=== PATIENT | male | born 1955 | race Caucasian/White ===

== ENCOUNTER 2016-06-18 14:32 | Emergency (ER) | payer OTHER ==
[~2016-06-18] VITALS: Ht 180.3 cm; Wt 106.5 kg
[~2016-06-18 14:32] MED LIST: OMEP20CA59 PO
[2016-06-18 14:42] VITALS: Ht 180.3 cm; Wt 106.5 kg
[2016-06-18] MEDS ORDERED: ACETAMINOPHEN 500 MG TAB PO STA (14:59)
[2016-06-18] MEDS ORDERED: ALBUT/IPRATROP 3MG/0.5MG NEB 3 ML VIAL INH STA (14:59)
[2016-06-18] MEDS ORDERED: BLOOD PRESSURE PO (15:33)
--- NOTE | 2016-06-18 15:50 | DIAGNOSTIC IMAGING REPORT ---
CHEST 2 VIEWS ROUTINE CLINICAL HISTORY: cough, fever FLULIKE SYMPTOMS COMPARISON STUDY: No previous studies for comparison. FINDINGS: The cardiac and mediastinal contours are normal. There is no evidence of focal pulmonary consolidation. There is no evidence of failure. No pleural effusions are visualized.[ There are linear bibasilar atelectatic changes IMPRESSION: Bibasilar atelectatic change. No evidence of lobar consolidation. No evidence of failure. Electronically signed by: Percy Dong M.D. 06/18/2016 3:49 PM Dictated Date/Time: 06/18/2016 3:48 PM
[2016-06-18 16:23] VITALS: TEMP 37.3
[2016-06-18] MEDS ORDERED: ALBUTEROL HFA 8 GM INHALER INH STA (16:47)
[2016-06-18] MEDS ORDERED: HYDR5SYP11 PO (16:50)
--- NOTE | 2016-06-18 16:59 | EMERGENCY ROOM VISIT NOTE ---
History First contact with patient: 14:49 Chief Complaint: FLU LIKE SX Stated Complaint: FLU LIKE SX History of Present Illness The patient is a 61 year old male who presents to the Emergency Room with complaints of chest tightness, burning, cough, myalgias, shortness of breath and fever. The patient reports that his symptoms started yesterday morning. He was seen this morning at [facility] walk-in clinic. He was referred here to rule out pneumonia. He reports that his influenza test was negative. He denies any abdominal pain, diarrhea or urinary symptoms. The patient did not get his influenza shots this year. He does report that coworkers had similar symptoms last week. He rates his overall discomfort a 5 out of 10. Review of Systems 10 system review was performed and was negative except for pertinent positives and negatives as indicated in history of present illness Past Medical/Surgical History Medical Problems: (1) Gastric ulcer (2) Hypertension Surgical Problems: (1) No history of previous surgery Family History No significant family history Social History Smoking Status: Never Smoker Alcohol Use: none Marital Status: Occupation Status: employed Current/Historical Medications Scheduled Omeprazole (Prilosec), 20 MG PO DAILY [Blood Pressure], 1 TAB PO DAILY Scheduled PRN Hydrocodone W/ Homatropine (Hycodan 5/1.5MG 5 Ml), 5-10 ML PO Q4H PRN for Cough Allergies Uncoded Allergies: NKDA (Allergy, Unknown, 10/11/04) Physical Exam Vital Signs Date Time Temp Pulse Resp B/P Pulse Ox O2 Delivery O2 Flow Rate FiO2 06/18/16 16:23 37.3 98 16 120/66 91 Room Air 06/18/16 14:42 38.3 104 20 161/83 95 Room Air Physical Exam CONSTITUTIONAL: Healthy and well nourished. Alert and oriented X 3 with positive affect. She does not appear toxic. HEENT: Normocephalic, atraumatic. Pupils equal, round and reactive. Ears and nares are clear. There is no icterus or conjunctival injection. NECK: Full active range of motion without discomfort. No JVD or carotid bruits. LYMPHATICS: No cervical chain adenopathy. RESPIRATORY: Patient has mild end expiratory wheezing in upper lung gabriel. No obvious crackles, rhonchi or stridor. CARDIOVASCULAR: Regular rate and rhythm with no murmurs, rubs or gallops. GASTROINTESTINAL: Bowel sounds present in all quadrants. Soft and nontender to palpation. MUSCULOSKELETAL: Full range of motion of all joints without discomfort. INTEGUMENTARY: No rash or other significant dermatologic conditions noted. NEUROLOGIC: No focal neurologic deficits noted. Medical Decision & Procedures ER Provider Diagnostic Interpretation: My interpretation of a two-view chest x-ray does not show any consolidations or pneumothorax. Radiologist report is as follows: CHEST 2 VIEWS ROUTINE CLINICAL HISTORY: cough, fever FLULIKE SYMPTOMS COMPARISON STUDY: No previous studies for comparison. FINDINGS: The cardiac and mediastinal contours are normal. There is no evidence of focal pulmonary consolidation. There is no evidence of failure. No pleural effusions are visualized.[ There are linear bibasilar atelectatic changes IMPRESSION: Bibasilar atelectatic change. No evidence of lobar consolidation. No evidence of failure. Medications Administered Medications (Trade) Dose Ordered Sig/Kirk Route Start Time Stop Time Status Last Admin Dose Admin Albuterol/ Ipratropium (Duoneb) 3 ml NOW STAT INH 06/18/16 14:59 06/18/16 15:00 DC 06/18/16 15:12 3 ML Acetaminophen (Tylenol Tab) 1,000 mg NOW STAT PO 06/18/16 14:59 06/18/16 15:00 DC 06/18/16 15:12 1,000 MG ED Course Patient history and physical exam were performed. Nurse's notes were reviewed. Vital signs were reviewed. Blood pressure is 161/83. Pulse rate is 104 with an O2 saturation of 95% on room air. Oral temperature was 38.3C. The patient was administered Tylenol 1 g orally. He also received a unit dose DuoNeb treatment with significant reduction of his cough. A two-view chest x-ray was normal. The patient was advised that he currently has a viral upper respiratory infection/bronchitis. The patient was dispensed a Ventolin metered-dose inhaler with AeroChamber, and instructions for use. He also received a prescription for Hycodan as needed for worse cough. No drinking or driving while taking Hycodan. He was encouraged to take Tylenol as needed for fever/ pain. I did encourage the patient to follow-up with his PCP in 3-5 days if symptoms are not significantly improving. Return to the emergency department for any progressively worsening symptoms. The patient was happy with plan of care, voiced understanding of all discharge instructions, and denied any significant discomfort at the time of discharge. Impression Primary Impression: Acute viral bronchitis Departure Information Prescriptions Hydrocodone W/ Homatropine (HYCODAN 5/1.5MG 5 ML) 1 Syp Syp 5-10 ML PO Q4H Y for Cough, #200 ML Prov: Russ Tatum PA 06/18/16 Referrals No Doctor, Assigned (PCP) Patient Instructions [facility]
[2016-06-18 17:07] VITALS: BP 130/86; PULSE 102; O2SAT 92
== END 2016-06-18 17:08 | disposition home or self-care (01) ==
LOC: C.EDB 14:37 → C.EDC 17:08
DX: J20.9 Acute bronchitis, unspecified (principal); Z82.49 Family history of ischemic heart disease and other diseases of the circulatory system; Z79.899 Other long term (current) drug therapy